=== PATIENT | female | born 1980 | race Caucasian/White ===

== ENCOUNTER 2016-08-17 08:04 | Emergency (ER) | payer OTHER ==
[~2016-08-17] VITALS: Ht 165.1 cm; Wt 131.5 kg
[~2016-08-17 08:04] MED LIST: ABILIFY20 MG PO; AUGMENTIN875 MG PO; CAMRESE 0.15-01 EACH PO; CIPRO500 MG PO; COGENTIN0.5 MG PO; CYMBALTA60 MG PO; Cymbalta PO; DULOXETINE HCL60 MG PO; FLUOXETINE HCL10 MG PO; HYDROCHLOROTH12.5 M3 PO; Hydrodiuril,Oretic,E PO; IMITREX100 MG PO; LATUDA120 MG PO; LATUDA60 MG PO; LATUDA80 MG PO; LISINOPRIL10 MG PO; METFORMIN HCL500 MG PO; MOTRIN800 MG PO; NAPROSYN500 MG PO; NORCO 7.5/321 TABLET PO; PRAZOSIN HCL1 MG PO; PROZAC10 MG PO; SEASONIQUE 01 TABLET PO; TRAZODONE HCL150 MG PO; VALIUM5 MG PO; ZOFRAN ODT4 MG PO; Zestril,Prinivil PO; risperDAL PO
[2016-08-17] MEDS ORDERED: LATUDA120 MG PO (08:34)
[2016-08-17] MEDS ORDERED: LISINOPRIL10 MG PO (08:34)
[2016-08-17] MEDS ORDERED: PRILOSEC10 MG PO (08:34)
[2016-08-17 09:22] LABS: HEMATOCRIT 38.8 % (36.0-46.0); MCH 19.7 PG (29.0-34.0); MCV 61.6 FL (83-99); MEAN PLAT.VOLUME 10.1 uM^3 (9.5-12.4); PLATELET COUNT 320 K/uL (156-360); RBC DIS.WIDTH-CV 16.6 % (11.8-14.6); WHITE BLOOD COUNT 11.6 K/uL (4.1-10.2)
[2016-08-17 09:35] LABS: CHLORIDE 109 mEq/L (99-109); POTASSIUM 4.4 mEq/L (3.7-5.4); SODIUM 139 mEq/L (136-147)
[2016-08-17 09:37] LABS: GLUCOSE 165 mg/dL (70-99)
[2016-08-17 09:38] LABS: ANION GAP 9 MEQ/L (2-14)
[2016-08-17 09:39] LABS: TOTAL BILIRUBIN 0.6 mg/dL (0.0-1.0)
[2016-08-17 09:41] LABS: ALKALINE PHOSPHATASE 69 IU/L (3-129); GFR ESTIMATE (CALCULATED) > 59 mL/min/
[2016-08-17 09:42] LABS: UREA NITROGEN (BUN) 24 mg/dL (9-23)
[2016-08-17 09:44] LABS: LIPASE 13 U/L (1.0-51.0)
[2016-08-17 09:54] LABS: QUANTITATIVE HCG < 4.0 MIU/ML
[2016-08-17 11:43] LABS: ADD MIUA? NO; BILIRUBIN NEGATIVE; BLOOD NEGATIVE; COLOR YELLOW ((YELLOW)); GLUCOSE (STRIP) NEGATIVE; KETONES NEGATIVE; LEUKOCYTES NEGATIVE; NITRITE NEGATIVE; PROTEIN (STRIP) NEGATIVE; UCUL ADDED? NO; UROBILINOGEN 0.2 MG/DL (0.2-1.0)
[2016-08-17 12:05] LABS: SPECIFIC GRAVITY 1.067 (1.000-1.030)
[2016-08-17] MEDS ORDERED: ZOFRAN ODT4 MG PO (12:15)
[2016-08-17] MEDS ORDERED: BENTYL20 MG PO (12:15)
[2016-08-17] MEDS ORDERED: PERCOCET 5/31 TABLET PO (12:54)
[2016-08-17 13:16] VITALS: BP 129/75
== END 2016-08-17 13:21 | disposition home or self-care (01) ==
LOC: EME 08:04
PROVIDERS: Nurse Practitioner Family
DX: R10.9 Unspecified abdominal pain (principal); R11.2 Nausea with vomiting, unspecified; J45.909 Unspecified asthma, uncomplicated; M79.7 Fibromyalgia; I10 Essential (primary) hypertension; F31.9 Bipolar disorder, unspecified; Z87.442 Personal history of urinary calculi; Z86.73 Personal history of transient ischemic attack (TIA), and cerebral infarction without residual deficits
CPT/HCPCS: 74177; 80053; 81003; 83690; 84702; 85027; 99281; 99284; J2270; J2405; J7030

== ENCOUNTER 2016-09-08 14:06 | Emergency (ER) | payer OTHER ==
[~2016-09-08] VITALS: Ht 165.1 cm; Wt 130.4 kg
[~2016-09-08 14:06] MED LIST changes: +BENTYL20 MG PO; +PERCOCET 5/31 TABLET PO; +PRILOSEC10 MG PO
[2016-09-08 15:04] LABS: HEMATOCRIT 38.7 % (36.0-46.0); MCH 19.4 PG (29.0-34.0); MCV 60.5 FL (83-99); MEAN PLAT.VOLUME 10.2 uM^3 (9.5-12.4); PLATELET COUNT 385 K/uL (156-360); RBC DIS.WIDTH-CV 16.7 % (11.8-14.6); RBC DIS.WIDTH-SD 34.6 % (39-53); WHITE BLOOD COUNT 12.3 K/uL (4.1-10.2)
[2016-09-08 15:17] LABS: CHLORIDE 107 mEq/L (99-109); POTASSIUM 4.4 mEq/L (3.7-5.4); SODIUM 140 mEq/L (136-147)
[2016-09-08 15:19] LABS: GLUCOSE 87 mg/dL (70-99)
[2016-09-08 15:20] LABS: ANION GAP 8 MEQ/L (2-14)
[2016-09-08 15:22] LABS: GFR ESTIMATE (CALCULATED) > 59 mL/min/
[2016-09-08 15:23] LABS: UREA NITROGEN (BUN) 12 mg/dL (9-23)
[2016-09-08 16:06] LABS: ADD MIUA? YES; BILIRUBIN NEGATIVE; BLOOD MODERATE; COLOR YELLOW ((YELLOW)); GLUCOSE (STRIP) NEGATIVE; KETONES NEGATIVE; LEUKOCYTES SMALL; NITRITE POSITIVE; PROTEIN (STRIP) >=500; SPECIFIC GRAVITY 1.015 (1.000-1.030); UROBILINOGEN 0.2 MG/DL (0.2-1.0)
[2016-09-08 16:24] LABS: BACTERIA 2+ /HPF; EPITHELIAL CELLS 1+ /HPF; MUCUS TRACE /LPF; RED BLOOD CELLS TNTC /HPF (0-5); UCUL ADDED? YES; WHITE BLOOD CELLS TNTC /HPF (0-5)
[2016-09-08 17:18] LABS: QUANTITATIVE HCG < 4.0 MIU/ML
[2016-09-08] MEDS ORDERED: CIPRO500 MG PO (18:03)
[2016-09-08] MEDS ORDERED: PYRIDIUM100 MG PO (18:04)
[2016-09-08] MEDS ORDERED: TYLENOL WITH C1 EACH PO (18:04)
[2016-09-08 18:13] VITALS: BP 129/89
== END 2016-09-08 18:18 | disposition home or self-care (01) ==
LOC: EME 14:06
DX: N10 Acute pyelonephritis (principal)
CPT/HCPCS: 74176; 80048; 81003; 84702; 85027; 87077; 87086; 87186; 99281; 99284; J0696; J1885

== ENCOUNTER 2016-12-13 11:33 | Emergency (ER) | payer OTHER ==
[~2016-12-13] VITALS: Ht 165.1 cm; Wt 132.2 kg
[~2016-12-13 11:33] MED LIST changes: +PYRIDIUM100 MG PO; +TYLENOL WITH C1 EACH PO
[2016-12-13 13:09] LABS: ADD MIUA? YES; BILIRUBIN NEGATIVE; BLOOD NEGATIVE; COLOR YELLOW ((YELLOW)); GLUCOSE (STRIP) NEGATIVE; KETONES NEGATIVE; LEUKOCYTES LARGE; NITRITE NEGATIVE; PROTEIN (STRIP) NEGATIVE; SPECIFIC GRAVITY 1.012 (1.000-1.030); UROBILINOGEN 0.2 MG/DL (0.2-1.0)
[2016-12-13 13:16] LABS: BACTERIA RARE /HPF; EPITHELIAL CELLS RARE /HPF; MUCUS TRACE /LPF; UCUL ADDED? YES; WHITE BLOOD CELLS TNTC /HPF (0-5)
[2016-12-13 13:47] LABS: HEMATOCRIT 38.8 % (36.0-46.0); MCHC 29.9 G/DL (30.0-36.0); MCV 63.7 FL (83-99); MEAN PLAT.VOLUME 10.2 uM^3 (9.5-12.4); PLATELET COUNT 367 K/uL (156-360); RBC DIS.WIDTH-CV 15.4 % (11.8-14.6); RBC DIS.WIDTH-SD 32.4 % (39-53); RED BLOOD COUNT 6.09 M/uL (3.80-5.20); WHITE BLOOD COUNT 10.9 K/uL (4.1-10.2)
[2016-12-13 13:49] LABS: INTERNAL CONTROL VALID? YES
[2016-12-13 13:52] LABS: CHLORIDE 105 mEq/L (99-109); POTASSIUM 3.6 mEq/L (3.7-5.4); SODIUM 138 mEq/L (136-147)
[2016-12-13 13:53] LABS: GLUCOSE 81 mg/dL (70-99)
[2016-12-13 13:55] LABS: ANION GAP 9 MEQ/L (2-14)
[2016-12-13 13:57] LABS: GFR ESTIMATE (CALCULATED) > 59 mL/min/
[2016-12-13 13:58] LABS: UREA NITROGEN (BUN) 12 mg/dL (9-23)
[2016-12-13] MEDS ORDERED: KEFLEX500 MG PO (16:34)
[2016-12-13 18:07] VITALS: BP 104/53
== END 2016-12-13 16:50 | disposition home or self-care (01) ==
LOC: EME 11:33
PROVIDERS: Emergency Medicine
DX: N39.0 Urinary tract infection, site not specified (principal); Z86.14 Personal history of Methicillin resistant Staphylococcus aureus infection; J45.909 Unspecified asthma, uncomplicated; M79.7 Fibromyalgia; I10 Essential (primary) hypertension; Z87.442 Personal history of urinary calculi; M32.9 Systemic lupus erythematosus, unspecified
CPT/HCPCS: 80048; 81003; 84703; 85027; 87086; 99281; 99284

== ENCOUNTER 2017-04-12 01:37 | Emergency (ER) | payer OTHER ==
[~2017-04-12] VITALS: Ht 165.1 cm; Wt 136.2 kg
[~2017-04-12 01:37] MED LIST changes: +KEFLEX500 MG PO
[2017-04-12 02:43] LABS: CHLORIDE 105 mEq/L (99-109); POTASSIUM 3.9 mEq/L (3.7-5.4); SODIUM 139 mEq/L (136-147)
[2017-04-12 02:45] LABS: GLUCOSE 112 mg/dL (70-99)
[2017-04-12 02:46] LABS: ANION GAP 9 MEQ/L (2-14)
[2017-04-12 02:49] LABS: GFR ESTIMATE (CALCULATED) > 59 mL/min/
[2017-04-12 02:50] LABS: UREA NITROGEN (BUN) 14 mg/dL (9-23)
[2017-04-12 02:51] LABS: CREATINE KINASE 100 IU/L (1-294); TOTAL CK 100 IU/L (1-294)
[2017-04-12 02:57] LABS: CK-MB 1.8 ng/mL (0.0-4.9)
[2017-04-12 03:03] LABS: HEMATOCRIT 36.1 % (36.0-46.0); MCH 18.7 PG (29.0-34.0); MCHC 29.6 G/DL (30.0-36.0); MCV 63.2 FL (83-99); MEAN PLAT.VOLUME 10.4 uM^3 (9.5-12.4); PLATELET COUNT 272 K/uL (156-360); RBC DIS.WIDTH-CV 16.8 % (11.8-14.6); RBC DIS.WIDTH-SD 36.7 % (39-53); RED BLOOD COUNT 5.71 M/uL (3.80-5.20); WHITE BLOOD COUNT 12.5 K/uL (4.1-10.2)
[2017-04-12] MEDS ORDERED: PREDNISONE20 MG PO (03:45)
[2017-04-12 03:56] VITALS: BP 140/72
== END 2017-04-12 03:57 | disposition home or self-care (01) ==
LOC: EME 01:37
PROVIDERS: Emergency Medicine
DX: M79.1 Myalgia (principal); R42 Dizziness and giddiness; R11.0 Nausea; T37.0X5A Adverse effect of sulfonamides, initial encounter; I10 Essential (primary) hypertension; J45.909 Unspecified asthma, uncomplicated; M32.9 Systemic lupus erythematosus, unspecified; F32.9 Major depressive disorder, single episode, unspecified; Z86.73 Personal history of transient ischemic attack (TIA), and cerebral infarction without residual deficits
CPT/HCPCS: 80048; 82550; 82553; 85027; 99281; 99284; J7512

== ENCOUNTER 2017-04-21 00:38 | Emergency (ER) | payer OTHER ==
[~2017-04-21] VITALS: Ht 165.1 cm; Wt 136.3 kg
[~2017-04-21 00:38] MED LIST changes: +PREDNISONE20 MG PO
[2017-04-21 01:27] LABS: AMPHETAMINE NEGATIVE (500 ng/mL); BARBITURATES NEGATIVE (200 ng/mL); BENZODIAZEPINES NEGATIVE (150 ng/mL); COCAINE NEGATIVE (150 ng/mL); INTERNAL CONTROLS VALID? YES; METHADONE NEGATIVE (200 ng/mL); METHAMPHETAMINE NEGATIVE (500 ng/mL); OPIATES (MORPHINE) NEGATIVE (100 ng/mL); OXYCODONE NEGATIVE (100 ng/mL); PHENCYCLIDINE NEGATIVE (25 ng/mL); PROPOXYPHENE NEGATIVE (300 ng/mL); THC CANNABINOIDS PRESUMPTIVE POSITIVE (50 ng/mL); TRICYCLIC ANTIDEPRESSANTS NEGATIVE (300 ng/mL)
[2017-04-21 01:28] LABS: ADD MEDTOX COMMENT Y
[2017-04-21 01:30] LABS: HEMATOCRIT 39.8 % (36.0-46.0); MCH 18.4 PG (29.0-34.0); MCHC 29.4 G/DL (30.0-36.0); MCV 62.6 FL (83-99); MEAN PLAT.VOLUME 10.1 uM^3 (9.5-12.4); PLATELET COUNT 298 K/uL (156-360); RBC DIS.WIDTH-CV 17.5 % (11.8-14.6); RBC DIS.WIDTH-SD 34.9 % (39-53); RED BLOOD COUNT 6.36 M/uL (3.80-5.20); WHITE BLOOD COUNT 13.6 K/uL (4.1-10.2)
[2017-04-21 01:32] LABS: CHLORIDE 104 mEq/L (99-109); POTASSIUM 3.8 mEq/L (3.7-5.4); SODIUM 138 mEq/L (136-147)
[2017-04-21 01:34] LABS: GLUCOSE 85 mg/dL (70-99)
[2017-04-21 01:36] LABS: ANION GAP 12 MEQ/L (2-14)
[2017-04-21 01:37] LABS: SERUM ETHYL ALCOHOL < 10 mg/dL
[2017-04-21 01:38] LABS: GFR ESTIMATE (CALCULATED) > 59 mL/min/
[2017-04-21 01:39] LABS: UREA NITROGEN (BUN) 17 mg/dL (9-23)
[2017-04-21] MEDS ORDERED: HYDROCHLOROTH12.5 M3 PO (01:50)
[2017-04-21] MEDS ORDERED: PRILOSEC20 MG PO (01:51)
[2017-04-21] MEDS ORDERED: PROZAC40 MG PO (01:53)
[2017-04-21] MEDS ORDERED: PRAZOSIN HCL2 MG PO (01:53)
[2017-04-21] MEDS ORDERED: PRAZOSIN HCL1 MG PO (01:54)
[2017-04-21] MEDS ORDERED: PLAQUENIL200 MG PO (01:54)
[2017-04-21 03:37] VITALS: BP 124/91
== END 2017-04-21 03:39 | disposition home or self-care (01) ==
LOC: EME 00:38
DX: F31.30 Bipolar disorder, current episode depressed, mild or moderate severity, unspecified (principal); F41.1 Generalized anxiety disorder; F43.10 Post-traumatic stress disorder, unspecified; M79.7 Fibromyalgia; M32.9 Systemic lupus erythematosus, unspecified; I10 Essential (primary) hypertension; J45.909 Unspecified asthma, uncomplicated; Z86.73 Personal history of transient ischemic attack (TIA), and cerebral infarction without residual deficits; Z91.040 Latex allergy status; Z88.8 Allergy status to other drugs, medicaments and biological substances; Z87.442 Personal history of urinary calculi
CPT/HCPCS: 80048; 84999; 85027; 90839; 99281; 99285; G0480

== ENCOUNTER 2017-04-26 22:04 | Emergency (ER) | payer OTHER ==
[~2017-04-26] VITALS: Ht 165.1 cm; Wt 137.4 kg
[~2017-04-26 22:04] MED LIST changes: +PLAQUENIL200 MG PO; +PRAZOSIN HCL2 MG PO; +PRILOSEC20 MG PO; +PROZAC40 MG PO
[2017-04-27] MEDS ORDERED: NORCO 10/3251 TABLET PO (00:36)
[2017-04-27 00:59] VITALS: BP 121/67
== END 2017-04-27 01:02 | disposition home or self-care (01) ==
LOC: EME 22:04
PROC: 0H95XZZ Drainage of Chest Skin, External Approach (ICD-10-PCS; principal; 2017-04-26)
DX: L72.3 Sebaceous cyst (principal); L08.9 Local infection of the skin and subcutaneous tissue, unspecified; Z86.14 Personal history of Methicillin resistant Staphylococcus aureus infection; M32.9 Systemic lupus erythematosus, unspecified; I10 Essential (primary) hypertension; Z87.891 Personal history of nicotine dependence; Z91.040 Latex allergy status; Z88.2 Allergy status to sulfonamides; Z88.8 Allergy status to other drugs, medicaments and biological substances
CPT/HCPCS: 87070; 87075; 87076; 87205; 99281; 99284; J3010